=== PATIENT | female | born 2000 | race Caucasian/White ===

== ENCOUNTER 2022-03-04 12:53 | Outpatient (CLI) | payer BC, SELFPAY ==
--- NOTE | 2022-03-04 13:00 | CRLHL7_ITS ---
For Patients: As a result of the Century Cures Act, medical imaging exams and procedure reports are released immediately into your electronic medical record. You may view this report before your referring provider. If you have questions, please contact your health care provider. OBSTETRICAL ULTRASOUND ??? ANATOMY SURVEY, 03/04/2022 CLINICAL HISTORY: anatomy survey. 2, para 1. ZOIE by LMP: 07/19/2022 GESTATIONAL AGE: 20 weeks 3 days TECHNIQUE: Transabdominal FINDINGS: position: Vertex Cervix: Visualized Length of closed cervix: 4.5 cm Placenta position: Anterior Placenta tip to internal os: +5 cm Umbilical cord: 3-vessel cord Placental insertion: Central Amniotic fluid: 4.1 cm SDP (greater than or equal to 2 to less than 8 cm) ANATOMY SURVEY: Observed Structures Cerebellum: 2.0 cm, 20 weeks 2 days Cisterna magna: 4.1 mm Nuchal fold: 3.0 mm Lateral ventricle: 5.9 mm CSP Midline falx Choroid plexus Spine Stomach Abdominal cord insert Urinary bladder Kidneys Diaphragm Nose/lips Orbital view Profile Upper extremities Lower extremities Hands Feet 4-chamber heart LVOT RVOT 3VV BPD: 4.5 cm, 19 weeks 5 days, 20% HC: 17.2 cm, 19 weeks 5 days, 15% AC: 15.4 cm, 20 weeks 4 days, 50% FL: 3.2 cm, 19 weeks 6 days, 22% FL/AC: 20.5% HC/AC ratio: 1.11 heart rate: 150 bpm age by this ultrasound: 20 weeks 0 days ZOIE by this ultrasound: 07/22/2022 Estimated weight: 337 grams (0 pounds 12 ounces) Percentile by ZOIE: 32% IMPRESSION: Single live intrauterine gestation. No gross anomalies visualized. MADELINE BHARDWAJ M.D. Diagnostic/Breast Radiologist [email or web address] Transcribed: 4:[address]/Dictated by: Madeline Bhardwaj MD @ 03/04/2022 2:43:00 PM (Electronically Signed)
== END 2022-03-04 12:54 | disposition home or self-care (01) ==
LOC: US 12:55
PROVIDERS: Visit Provider Physician Assistant
DX: Z34.92 Encounter for supervision of normal pregnancy, unspecified, second trimester (principal); Z3A.20 20 weeks gestation of pregnancy
CPT/HCPCS: 76805

== ENCOUNTER 2022-05-02 14:23 | Outpatient (CLI) | payer BC, SELFPAY ==
[2022-05-03 18:37] LABS: Rapid Plasma Reagin (RPR) Non Reactive (Non Reactive)
== END 2022-05-02 14:24 | disposition home or self-care (01) ==
PROVIDERS: Visit Provider Physician Assistant
DX: Z34.93 Encounter for supervision of normal pregnancy, unspecified, third trimester (principal); Z3A.28 28 weeks gestation of pregnancy
CPT/HCPCS: 86592; 86850

== ENCOUNTER 2022-05-09 12:04 | Outpatient (CLI) | payer BC, SELFPAY ==
[2022-05-09 11:57] LABS: Glucose Fasting Check 86 mg/dl (60-115)
[2022-05-09 17:08] LABS: Glucose 1 Hour Gest 164 mg/dl (70-180)
[2022-05-09 17:08] LABS: Glucose GTT-Gestational 3 Hr 120 mg/dl (70-140)
== END 2022-05-09 12:05 | disposition home or self-care (01) ==
PROVIDERS: Visit Provider Obstetrics & Gynecology
DX: Z34.93 Encounter for supervision of normal pregnancy, unspecified, third trimester (principal); Z3A.29 29 weeks gestation of pregnancy
CPT/HCPCS: 82951; 82952

== ENCOUNTER 2022-06-24 16:25 | Outpatient (CLI) | payer BC, SELFPAY ==
[2022-06-26 17:45] LABS: Strep B DNA Probe NEGATIVE (Negative)
[2022-06-28 10:24] LABS: Strep B Pen/Amox Allergy No
== END 2022-06-24 16:26 | disposition home or self-care (01) ==
LOC: NFLDREF 16:27
PROVIDERS: Visit Provider Obstetrics & Gynecology
DX: Z34.93 Encounter for supervision of normal pregnancy, unspecified, third trimester (principal); Z3A.36 36 weeks gestation of pregnancy
CPT/HCPCS: 87081; 87653

== ENCOUNTER 2022-06-27 17:42 | Outpatient (CLI) | payer BC, SELFPAY ==
[2022-06-27 17:59] VITALS: PULSE 157; O2SAT 98
[2022-06-27 18:00] VITALS: BP 93/48; PULSE 155
[2022-06-27 18:02] VITALS: BP 98/50; PULSE 148
[2022-06-27 18:04] VITALS: PULSE 149; O2SAT 98
[2022-06-27 18:09] VITALS: TEMP 37.1
[2022-06-27 19:42] LABS: Appearance Urine Cloudy (Clear); Bilirubin Urine 1+ (Negative); Blood Urine Negative (Negative); Color Urine Dark yellow (Yellow); Glucose Urine Negative (Negative); Ketones Urine 4+ (Negative); Leukocyte Esterase Urine 1+ (Negative); Nitrite Urine Negative (Negative); Protein Urine Trace (Negative); Specific Gravity Urine 1.025 (1.000-1.030); Urobilinogen Urine 0.2 (0.2-1.0); pH Urine 6.5 (5.0-8.5)
[2022-06-27 20:49] LABS: Amorphous Sediment Urine Few; Bacteria Urine Few; RBC Urine 0-2 (0-2); Squamous Epithelial Cell Urine Many (None-Few)
[2022-06-27 20:50] LABS: Mucus Urine Few
[2022-06-27] MEDS: LACTATED RINGERS 1000 ML 1,000 ML 900 ML IV (21:24)
--- NOTE | 2022-06-27 21:36 | PC.OBNST ---
NST Note NST Note Start: 06/27/22 17:48 Freq: ONCE Status: Active Protocol: Document 06/27/22 21:33 SIMA (Rec: 06/27/22 21:35 SIMA [id number]) NST Note 2 Para (# of births) 1 EDC 07/19/22 Gestational Age In Weeks & Days 36 Weeks & 6 Days Patient Presented with Complaint(s) of Pain If Pain, describe location low back pain my tailbone' Reactive Yes Appropriate for Gestational Age Yes MUKUND Zee, RN Date 06/27/22 Reactive Yes Appropriate for Gestational Age Yes MUKUND Baires RN Date 06/27/22 OB NST charge Yes Complete NST Note via Write Note Yes The provider's electronic signature indicates the NST is reactive/appropriate for gestational age. *Note to provider: If an addendum is required, open the patient's chart and click on the note under the Nurse/Allied Health tab.
== END 2022-06-27 22:41 | disposition home or self-care (01) ==
LOC: OB OUT 17:43 → OB 17:45
PROVIDERS: Visit Provider Obstetrics & Gynecology
DX: O47.03 False labor before 37 completed weeks of gestation, third trimester (principal); Z3A.36 36 weeks gestation of pregnancy
CPT/HCPCS: 59025; 81003; 81015; 87086; 99213; J7120

== ENCOUNTER 2022-07-19 13:58 | Outpatient (CLI) | payer BC, SELFPAY ==
--- NOTE | 2022-07-19 14:00 | CRLHL7_ITS ---
For Patients: As a result of the Cures Act, medical imaging exams and procedure reports are released immediately into your electronic medical record. You may view this report before your referring provider. If you have questions, please contact your health care provider. INDICATION: Growth and fluid check. COMPARISON: OB ultrasound 03/04/2022. TECHNIQUE: Ultrasound OB pelvis with real time zarate scale imaging. FINDINGS: Sonographic imaging demonstrates a single living intrauterine gestation. The fetus has a regular cardiac rate of 134 beats per minute. The fetus has a cephalic orientation. The placenta lies anteriorly without evidence of placenta previa. Amniotic fluid volume appears normal with single deepest pocket measuring 6.7 cm. The composite ultrasound gestational age is calculated at 37 weeks 5 days with an estimated sonographic due date of 08/04/2022. The estimated weight is 3737 grams which lies at the 60th percentile. The following biometric measurements were obtained: Biparietal diameter: 8.73 cm (35 weeks 2 days) (less than 3rd percentile) Head circumference: 32.32 cm (36 weeks 4 days) (less than 3rd percentile) Abdominal circumference: 37.72 cm (41 weeks 5 days) (greater than 97th percentile) Femur length: 7.25 cm (37 weeks 1 day) (5th percentile) The HC/AC ratio measures: 0.86 (range 0.90-1.05) IMPRESSION: 1. Single living intrauterine gestation in cephalic position with heart rate 134 beats per minute. 2. Ultrasound gestational age 37 weeks 5 days with sonographic due date 08/04/2022. The clinical gestational age is 40 weeks 0 days. 3. Estimated weight is 60th percentile, however the biparietal diameter and head circumference are noted to be less than 3rd percentile and the abdominal circumference is noted to be greater than 97th percentile. Dictated by Arianna Monteiro MD @ 07/19/2022 11:01:36 PM (Electronically Signed)
== END 2022-07-19 13:59 | disposition home or self-care (01) ==
LOC: US 13:59
PROVIDERS: Visit Provider Obstetrics & Gynecology
DX: Z34.93 Encounter for supervision of normal pregnancy, unspecified, third trimester (principal); Z3A.37 37 weeks gestation of pregnancy
CPT/HCPCS: 76816

== ENCOUNTER 2022-07-25 16:49 | Inpatient (IN) | payer BC, SELFPAY ==
--- NOTE | 2022-07-25 15:00 | CRLHL7_ITS ---
For Patients: As a result of the Century Cures Act, medical imaging exams and procedure reports are released immediately into your electronic medical record. You may view this report before your referring provider. If you have questions, please contact your health care provider. INDICATION: Nonreactive stress test COMPARISON: 07/19/2022 TECHNIQUE: Real time zarate scale imaging of the fetus was performed. Without non-stress testing. FINDINGS: Sonographic imaging demonstrates a single living intrauterine gestation. Fetus demonstrates a regular cardiac rate of 131 beats per minute. Fetus has a vertex position. The amniotic fluid volume appears normal and there is a single deepest pocket measurement of 4.5 cm. The fetus was active but without normal breathing movements. There was normal flexion and extension of the trunk and extremities. IMPRESSION: Biophysical profile 01/12. Absent respiratory activity. Dictated by Cameron Ramos MD @ 07/26/2022 8:34:53 AM (Electronically Signed)
[2022-07-25 16:59] VITALS: PULSE 114; RESP 18; TEMP 36.6; O2SAT 97
[2022-07-25 17:04] VITALS: PULSE 85; O2SAT 97
[2022-07-25 17:10] VITALS: BP 114/71; PULSE 93
[2022-07-25 17:13] VITALS: BMI 45.3
--- NOTE | 2022-07-25 18:04 | PM.OBHPLI ---
OB - H&P: HPI Labor/Induction History of Present Illness Time Seen by Provider: 17:00 Date Seen: 07/25/22 Chief Complaint: Induction of labor Chief complaint: Post term Narrative: Katiuska Cormier is a 22 year old female here for induction of labor. Patient getting BPP for postterm date and BPP 01/12. Patient had NST in clinic and it was nonreactive. Recommended IOL. Patient agreed to IOL. History of Present Dating criteria: based on 1st trimester US only Meds Home Medications and Allergies Home Medications Medication Instructions Recorded Confirmed Type calcium carbonate 200 mg calcium 200 mg PO BID 03/04/22 07/25/22 History (500 mg) chewable tablet (Antacid (calcium carbonate)) prenat.vits,onel,[id number]-azsr-uitsw 1 tab PO QDAY 03/04/22 07/25/22 History Allergies Allergy/AdvReac Type Severity Reaction Status Date / Time ibuprofen Allergy Mild Unsure Verified 07/25/22 13:54 OB - H&P: Exam Physical Exam: Vital signs: Temp Pulse Resp BP Pulse Ox 97.9 F 93 18 114/71 97 07/25/22 16:59 07/25/22 17:10 07/25/22 16:59 07/25/22 17:10 07/25/22 17:04 Narrative: Physical exam: General: No acute distress Psych: Alert and oriented x3, full affect HEENT: Normocephalic, atraumatic Lungs: Unlabored breathing Abdomen: Gravid, soft, no tenderness, rebound, or guarding Pelvic exam: /-3 OB - Problem Based A/P Additional Plan (1) : Status: Acute Plan - Cook cath placed at 1730 with SVE /-3, posterior - Will start pitocin PRN
[2022-07-25 18:54] LABS: SARS PCR* Negative SARS-CoV-2 (Negative)
[2022-07-25 19:45] VITALS: TEMP 36.6
[2022-07-25 19:48] VITALS: BP 116/66; PULSE 90
[2022-07-26] VITALS (95 sets, daily range): BP systolic 78–156; BP diastolic 39–81; PULSE 66–134; RESP 16–18; TEMP 36.4–37.7; O2SAT 97–100
[2022-07-26 00:02] LABS: Basophils Absolute Auto 0.03 K/uL (0.00-0.30); Basophils Percent Auto 0.3 % (0.0-3.0); Eosinophils Absolute Auto 0.05 K/uL (0.00-0.50); Eosinophils Percent Auto 0.5 % (0.0-7.0); Hematocrit 38.1 % (33.0-51.0); Hemoglobin* 12.6 gm/dL (12.0-16.0); Immature Granulocytes Abs Auto 0.02 K/uL (0.00-0.30); Immature Granulocytes Pct Auto 0.2 %; Lymphocytes Absolute Auto 2.75 K/uL (0.90-2.90); Lymphocytes Percent Auto 29.2 % (20-44); Mean Corpuscular HGB Conc 33 gm/dL (32-36); Mean Corpuscular Hemoglobin 30 pg (26-34); Mean Corpuscular Volume 91 fL (80-100); Monocytes Percent Auto 6.1 % (0.0-11.0); Neutrophils Absolute Auto 5.99 K/uL (1.7-7.0); Neutrophils Percent Auto 63.7 % (42.0-72.0); Platelet Count* 215 K/uL (140-440); RDW Coefficient of Variation % 14.5 % (11.5-15.5); Red Blood Count 4.21 m/uL (4.00-5.20); White Blood Count* 9.41 K/uL (4.50-11.00)
[2022-07-26 00:05] LABS: Slide Review Reflex No
[2022-07-26] MEDS: LACTATED RINGERS 1000 ML 1,000 ML 125 ML IV ×3 (00:12→16:25)
[2022-07-26] MEDS: OXYTOCIN 30 unit/500 ML in NS 30 UNIT/500 ML BAG IVPB (00:14)
[2022-07-26] MEDS: hydrOXYzine pamoate 25 MG CAPSULE 100 MG PO (00:34)
[2022-07-26] MEDS: MORPHINE 10 MG/ML inj IM (00:35)
[2022-07-26] MEDS: LACTATED RINGERS 1000 ML 1,000 ML 119 ML IV (07:58)
--- NOTE | 2022-07-26 12:54 | PM.OBPNL ---
Subjective Date Seen: 07/26/22 Narrative: Katiuska woke up a short time ago. She is feeling some of her contractions. She is on Pitocin augmentation, currently at 8 milliunits a minute. Objective Exam: General: Wincing through contractions Abdomen: Soft, nontender, gravid, 8.5 lb by Steve's, cephalic lie Cervical exam: 3.5 cm, 70%,-2, posterior, soft AROM for clear fluid Vital Signs: Last Vital Signs Temp 97.5 F L 07/26/22 12:32 Pulse 84 07/26/22 12:34 Resp 18 07/26/22 12:32 BP 122/69 07/26/22 12:34 Pulse Ox 97 07/25/22 17:04 Pelvic Exam Dilation (cm): 3.5 Effacement (%): 70 Station: -2 Comments: Posterior, soft Contractions Monitor mode: External Contraction Frequency: Every 1-2 minutes Contraction pattern: Regular Pitocin Rate (mU/min): 8 Assessment Assessment: early labor Status: Category l Labor Progress: 22-year-old [id number] woman at 41 weeks gestation here for induction of labor. Cervix now favorable. Progressing through latent labor. GBS negative Plan Plan: Continue Pitocin augmentation. Epidural as desired. Anticipate spontaneous vaginal delivery.
[2022-07-26] MEDS: ROPIVACAINE 0.2% 100 ml 100 ML 12 MG EPIDURAL (13:41)
--- NOTE | 2022-07-26 13:49 | PM.ANBPRC ---
[facility] Medical History (Updated 07/11/22 @ 14:15 by Susana Noriega MD) Closed head injury Dysmenorrhea GERD (gastroesophageal reflux disease) Illicit drug use Migraine with aura Normal spontaneous vaginal delivery Surgical History (Updated 07/11/22 @ 14:15 by Susana Noriega MD) No pertinent past surgical history Family History (Updated 07/11/22 @ 14:15 by Susana Noriega MD) Other Breast cancer Diabetes Heart disease Substance abuse Social History (Updated 07/11/22 @ 14:16 by Susana Noriega MD) Narrative: Lives in [place] with daughter, not yet 2 yrs old. FOB involved. Unemployed. Tobacco use. No ETOH or drug use during . Smoking Status: Current some day smoker Meds Home Medications and Allergies Home Medications Medication Instructions Recorded Confirmed Type calcium carbonate 200 mg calcium 200 mg PO BID 03/04/22 07/25/22 History (500 mg) chewable tablet (Antacid (calcium carbonate)) prenat.vits,onel,iph-gayz-[id number] 1 tab PO QDAY 03/04/22 07/25/22 History Allergies Allergy/AdvReac Type Severity Reaction Status Date / Time ibuprofen Allergy Mild Unsure Verified 07/25/22 13:54 Results Labs Labs: Laboratory Results - last 24 hr 07/25/22 07/25/22 07/25/22 18:05 23:55 23:55 WBC 9.41 RBC 4.21 Hgb 12.6 Hct 38.1 MCV 91 MCH 30 MCHC 33 RDW Coeff of Cynthia 14.5 Plt Count 215 Neut % (Auto) 63.7 Lymph % (Auto) 29.2 [place] % (Auto) 6.1 Eos % (Auto) 0.5 Baso % (Auto) 0.3 Neut # (Auto) 5.99 Lymph # (Auto) 2.75 [place] # (Auto) 0.60 Eos # (Auto) 0.05 Baso # (Auto) 0.03 SARS-CoV-2 (PCR) Negative SARS-CoV-2 Blood Type O Negative Antibody Screen NEGATIVE Vital Signs Vital Signs: Last Vital Signs Temp 97.5 F L 07/26/22 12:32 Pulse 91 07/26/22 13:43 Resp 18 07/26/22 12:32 BP 122/58 L 07/26/22 13:43 Pulse Ox 100 07/26/22 13:44 Weight: 108.862 kg Height: 154.94 cm Anesthesia Procedures Epidural Insertion Patient Location: OB Start Time: 13:10 Stop Time: 14:10 Start Date: 07/26/22 Stop Date: 07/26/22 Reason for Block: procedure for pain Patient Position: sitting Performed By: Anuradha Garcia Preanesthetic Checklist: IV checked, risks and benefits discussed, monitors and equipment checked, pre-op evaluation, timeout performed and anesthesia consent Prep: chlorhexidine gluconate Monitoring: blood pressure monitoring, continuous pulse oximetry and heart rate Approach: midline Vertebral Space: lumbar (1-5) Epidural Technique: PANKAJ saline Needle Type: Tuohy needle Injection Technique: continuous catheter (continuous catheter) Needle gauge: 17 Needle Length (cm): 10 cm Needle Insertion Depth (cm): 9 Catheter Gauge: 19 Catheter Type: multi-orifice Catheter at skin depth (cm): 15 Test Dose Result: negative and lidocaine 1.5% with epinephrine 1 to 200,000
[2022-07-26] MEDS: PHENYLEPHRINE 100 MCG/ML SYRINGE IVP ×4 (14:04→16:57)
[2022-07-26] MEDS: ePHEDrine sulfate 5 MG/ML inj 10 MG IVP (14:12)
--- NOTE | 2022-07-26 16:15 | PM.OBPNL ---
Subjective Time Seen by Provider: 15:50 Date Seen: 07/26/22 Narrative: Katiuska has had epidural. I was called to evaluate her for deceration, which happened spontaneously. She is not feeling any contractions. Objective Vital Signs: Last Vital Signs Temp 97.5 F L 07/26/22 12:32 Pulse 105 H 07/26/22 16:06 Resp 18 07/26/22 12:32 BP 90/51 L 07/26/22 16:06 Pulse Ox 99 07/26/22 15:51 Comments: lying on her right side when I enter. tracing improves when she moves to her back. Pelvic Exam Dilation (cm): 6.5 Effacement (%): 90 Station: -1 Comments: per RN Contractions Monitor mode: External Contraction pattern: Regular Pitocin Rate (mU/min): 0 Assessment Assessment: early labor Status: Category ll Tracing Comments: Baseline initially 140 prior to 1550, category 1. Then tracing was lost. Upon obtaining tracing again, FHR in 90s for about 2 minutes, then recovered to 110s for several minutes. Patient was given another dose of phenylephrine for low BP. FHR now 150s, variables with contractions for the last 15 minutes. Labor Progress: 22-year-old B2Q7-8-3-3 woman at 41 weeks gestation here for induction of labor. Active labor. GBS negative Plan Plan: Hold pitocin until status returns to baseline. Anticipate rapid progress through active labor. Continuous monitoring. Anticipate spontaneous vaginal delivery.
--- NOTE | 2022-07-26 20:47 | P.OBPRC_ITS ---
Procedure Procedure Done: [facility] Procedure Details: The patient is a 22 year-old G 2 P 1-0-0-1 woman admitted on 07/25/2022 at 40 Weeks, 6 Days gestation for induction of labor for nonreassuring status, BPP 6/10.? Cervical exam on admission was 1 cm/50 % effaced/-3 station with membranes intact in vertex presentation.? C heart rate demonstrated a nonreactive tracing.? She had Cook catheter for cervical ripening overnight, followed by Pitocin for induction of labor. AROM occurred at 10:40 a.m. on 07/26/2022 with clear fluid. ? Labor Analgesia:? Epidural ? Pitocin:? Yes ? Labor onset:? 12:15 p.m. on 07/26/2022 ? Complete:? 7:48 p.m. ? Pushing:? 7:59 p.m. ? heart tones during second stage were notable for intermittent variable decelerations, and an elevated baseline around 160. ? At 8:06 p.m. a viable female infant delivered in vertex direct OA presentation over intact perineum via spontaneous vaginal delivery.? was placed on maternal abdomen.? Cord was clamped and cut after a 60 second delay.? Nose and mouth were bulb suctioned.? weight pending.? 8 at 1 minute and 9 at 5 minutes.? Shoulder dystocia: No.? Nuchal cord: No. ? Placenta delivered spontaneously and complete at 8:11 p.m. with a 3 vessel cord. ? Mother and were stable after delivery. ? Lacerations:? Bilateral superficial periurethral, very shallow and not requiring repair. ? Blood loss: 100 mL. Blood loss measurement type: QBL ? Sponge and needles counts are correct.
[2022-07-26] MEDS: ACETAMINOPHEN 500 MG TABLET 1000 MG PO (23:03)
[2022-07-27 00:59] VITALS: BP 106/66; PULSE 91; RESP 16; TEMP 37.1; O2SAT 96
[2022-07-27 04:16] VITALS: BP 110/71; PULSE 80; RESP 16; TEMP 37; O2SAT 96
[2022-07-27] MEDS: ROPIVACAINE 0.2 % PF 10 ML INJ 20 MG EPIDURAL (05:47)
--- NOTE | 2022-07-27 07:48 | PM.OBDSVD1 ---
DS: Providers Provider Time Seen by Provider: 07:48 Date Seen: 07/27/22 Date of admission: 07/25/22 16:49 Primary care physician: Not a Local Provider Admitting Clinician: Salina Grey MD Attending Physician on discharge: Shreya Goldstein CNM Date of Discharge: 07/27/22 DS: Diagnosis Discharge Diagnosis (1) state: Status: Acute Exam Narrative: Exam Narrative: Objective: VSS, afebrile GENERAL APPEARANCE: ?normal affect, alert, no distress MOOD: ?appropriate HEENT: normocephalic, neck supple, full ROM CHEST: ?Symmetrical chest wall movement. ?Normal respiratory effort. ?Clear to auscultation HEART: ?regular rate and rhythm ABDOMEN: ?soft, non-tender. Uterine fundus is firm, 2 under Umbilicus, Midline and is appropriate for the stage of recovery. ?Bowel sounds present. PERINEUM: ?mild edema of the perineum, there is are bilateral superficial periurethral lacerations that are healing well. EXTREMITIES: ?normal and +1 edema Const: Vital Signs, click to edit/add: Vital Signs - 24 hr 07/26/22 08:47 07/26/22 09:41 07/26/22 10:35 Temperature Pulse Rate 69 80 81 Pulse Rate [Blood Pressure Cuff] Respiratory Rate Blood Pressure 121/56 L 118/55 L 107/65 Blood Pressure [Le ft Arm] Pulse Oximetry Oxygen Delivery Me od 07/26/22 11:30 07/26/22 12:27 07/26/22 12:34 Temperature Pulse Rate 86 91 84 Pulse Rate [Blood Pressure Cuff] Respiratory Rate Blood Pressure 127/62 156/81 H 122/69 Blood Pressure [Le ft Arm] [facility] 13:18 07/26/22 13:23 07/26/22 13:28 Temperature Pulse Rate Pulse Rate [Blood Pressure Cuff] Respiratory Rate Blood Pressure Blood Pressure [Le ft Arm] Pulse Oximetry 99 99 99 Oxygen Delivery Al thod 07/26/22 13:34 07/26/22 13:35 07/26/22 13:39 Temperature Pulse Rate 106 H Pulse Rate [Blood Pressure Cuff] Respiratory Rate Blood Pressure 143/81 H Blood Pressure [Le ft Arm] Pulse Oximetry 100 100 [facility] 13:40 07/26/22 13:43 07/26/22 13:44 Temperature Pulse Rate 99 91 Pulse Rate [Blood Pressure Cuff] Respiratory Rate Blood Pressure 127/58 L 122/58 L Blood Pressure [Le ft Arm] Pulse Oximetry 100 Oxygen Delivery Me thod 07/26/22 13:49 07/26/22 13:59 07/26/22 14:04 Temperature Pulse Rate 100 96 103 H Pulse Rate [Blood Pressure Cuff] Respiratory Rate Blood Pressure 112/56 L 95/45 L 89/50 L Blood Pressure [Le ft Arm] Pulse Oximetry 97 Oxygen Delivery Me thod 07/26/22 14:06 07/26/22 14:09 07/26/22 14:14 Temperature Pulse Rate 100 106 H 110 H Pulse Rate [Blood Pressure Cuff] Respiratory Rate Blood Pressure 94/50 L 88/42 L 103/54 L Blood Pressure [Le ft Arm] Pulse Oximetry Oxygen Delivery Me thod 07/26/22 14:19 07/26/22 14:24 07/26/22 14:30 Temperature Pulse Rate 115 H 134 H 102 H Pulse Rate [Blood Pressure Cuff] Respiratory Rate Blood Pressure 95/46 L 96/54 L 106/53 L Blood Pressure [Le ft Arm] Pulse Oximetry Oxygen Delivery Al thod 07/26/22 14:34 07/26/22 14:50 07/26/22 15:06 Temperature Pulse Rate 110 H 98 121 H Pulse Rate [Blood Pressure Cuff] Respiratory Rate Blood Pressure 104/52 L 104/51 L 99/51 L Blood Pressure [Le ft Arm] Pulse Oximetry Oxygen Delivery Me thod 07/26/22 15:17 07/26/22 15:21 07/26/22 15:35 Temperature Pulse Rate 112 H 96 90 Pulse Rate [Blood Pressure Cuff] Respiratory Rate Blood Pressure 103/56 L 109/55 L 104/55 L Blood Pressure [Le ft Arm] Pulse Oximetry Oxygen Delivery Me thod 07/26/22 15:50 07/26/22 15:51 07/26/22 16:05 Temperature Pulse Rate 86 120 H Pulse Rate [Blood Pressure Cuff] Respiratory Rate Blood Pressure 98/54 L 78/39 L Blood Pressure [Le ft Arm] Pulse Oximetry 99 Oxygen Delivery Me thod 07/26/22 16:06 07/26/22 16:06 07/26/22 16:06 Temperature Pulse Rate 100 105 H Pulse Rate [Blood Pressure Cuff] Respiratory Rate Blood Pressure 88/49 L 90/51 L Blood Pressure [Le ft Arm] Pulse Oximetry Oxygen Delivery Al thod 07/26/22 16:16 07/26/22 16:20 07/26/22 16:26 Temperature Pulse Rate 95 107 H 93 Pulse Rate [Blood Pressure Cuff] Respiratory Rate Blood Pressure 102/52 L 86/48 L 109/58 L Blood Pressure [Le ft Arm] Pulse Oximetry Oxygen Delivery Al thod 07/26/22 16:32 07/26/22 16:36 07/26/22 16:42 Temperature Pulse Rate 99 96 108 H Pulse Rate [Blood Pressure Cuff] Respiratory Rate Blood Pressure 101/50 L 96/50 L 91/47 L Blood Pressure [Le ft Arm] Pulse [facility]xim[facility] 16:47 07/26/22 16:50 07/26/22 16:55 Temperature Pulse Rate 100 112 H 112 H Pulse Rate [Blood Pressure Cuff] Respiratory Rate Blood Pressure 101/52 L 90/46 L 81/42 L Blood Pressure [Le ft Arm] Pulse Oximetry [facility] 17:00 07/26/22 17:02 07/26/22 17:06 Temperature Pulse Rate 101 H 97 106 H Pulse Rate [Blood Pressure Cuff] Respiratory Rate Blood Pressure 120/61 108/59 L 109/55 L Blood Pressure [Le ft Arm] Pulse Oximetry [facility] 07[facility] 17:07 07/26/22 17:10 07/26/22 17:16 Temperature Pulse Rate 104 H 114 H 100 Pulse Rate [Blood Pressure Cuff] Respiratory Rate Blood Pressure 101/53 L 95/49 L 116/59 L Blood Pressure [Le ft Arm] Pulse Oximetry Oxygen Delivery Al thod 07/26/22 17:20 07/26/22 17:26 07/26/22 17:31 Temperature Pulse Rate 98 95 96 Pulse Rate [Blood Pressure Cuff] Respiratory Rate Blood Pressure 108/53 L 116/53 L 119/57 L Blood Pressure [Le ft Arm] Pulse Oximetry Oxygen Delivery Al thod 07/26/22 17:36 07/26/22 17:40 07/26/22 17:45 Temperature Pulse Rate 97 111 H 113 H Pulse Rate [Blood Pressure Cuff] Respiratory Rate Blood Pressure 112/53 L 112/53 L 108/46 L Blood Pressure [Le ft Arm] Pulse Oximetry Oxygen Delivery Al thod 07/26/22 17:51 07/26/22 17:55 07/26/22 18:00 Temperature Pulse Rate 107 H 108 H 102 H Pulse Rate [Blood Pressure Cuff] Respiratory Rate Blood Pressure 105/50 L 99/48 L 99/50 L Blood Pressure [Le ft Arm] Pulse Oximetry Oxygen Delivery Al thod 07/26/22 18:05 07/26/22 18:10 07/26/22 18:16 Temperature Pulse Rate 101 H 104 H 102 H Pulse Rate [Blood Pressure Cuff] Respiratory Rate Blood Pressure 102/54 L 103/54 L 108/53 L Blood Pressure [Le ft Arm] Pulse Oximetry Oxygen Delivery Al thod 07/26/22 18:21 07/26/22 18:27 07/26/22 18:32 Temperature Pulse Rate 116 H 100 101 H Pulse Rate [Blood Pressure Cuff] Respiratory Rate Blood Pressure 103/50 L 115/54 L 112/56 L Blood Pressure [Le ft Arm] Pulse Oximetry [facility] 18:35 07/26/22 18:40 07/26/22 19:03 Temperature Pulse Rate 112 H 121 H 129 H Pulse Rate [Blood Pressure Cuff] Respiratory Rate Blood Pressure 107/51 L 103/50 L 103/48 L Blood Pressure [Le ft Arm] Pulse Oximetry [facility] 19:16 07/26/22 19:26 07/26/22 19:30 Temperature 99.8 F H Pulse Rate 123 H 115 H Pulse Rate [Blood Pressure Cuff] Respiratory Rate 16 Blood Pressure 104/51 L 107/53 L Blood Pressure [Le ft Arm] Pulse Oximetry [facility]22 19:46 07/26/22 20:01 07/26/22 20:13 Temperature Pulse Rate 129 H 120 H 113 H Pulse Rate [Blood Pressure Cuff] Respiratory Rate Blood Pressure 130/60 125/63 129/60 Blood Pressure [Le ft Arm] Pulse Oximetry Oxygen Delivery Al thod 07/26/22 20:27 07/26/22 20:43 07/26/22 20:57 Temperature Pulse Rate 121 H 129 H 112 H Pulse Rate [Blood Pressure Cuff] Respiratory Rate Blood Pressure 129/60 128/74 131/61 Blood Pressure [Le ft Arm] Pulse Oximetry Oxygen Delivery Me thod 07/26/22 21:12 07/26/22 21:27 07/26/22 21:42 Temperature Pulse Rate 110 H 118 H 111 H Pulse Rate [Blood Pressure Cuff] Respiratory Rate Blood Pressure 131/57 L 132/64 136/67 Blood Pressure [Le ft Arm] Pulse Oximetry Oxygen Delivery Me thod 07/26/22 21:57 07/26/22 21:57 07/26/22 08:50 Temperature 98.5 F Pulse Rate 109 H Pulse Rate [Blood Pressure Cuff] Respiratory Rate 18 Blood Pressure 125/65 Blood Pressure [Le ft Arm] Pulse Oximetry Oxygen Delivery Me thod 07/26/22 10:40 07/26/22 12:32 07/26/22 18:15 Temperature 98.3 F 97.5 F L 99.6 F Pulse Rate Pulse Rate [Blood Pressure Cuff] Respiratory Rate 16 18 18 Blood Pressure Blood Pressure [Le ft Arm] Pulse Oximetry Oxygen Delivery Me thod 07/26/22 18:55 07/26/22 11:31 07/26/22 13:42 Temperature 99.6 F 98.3 F 98 F Pulse Rate Pulse Rate [Blood Pressure Cuff] Respiratory Rate 18 18 16 Blood Pressure Blood Pressure [Le ft Arm] Pulse Oximetry Oxygen Delivery Me thod 07/26/22 15:12 07/26/22 16:05 07/26/22 16:59 Temperature 98.3 F 98.2 F 99.2 F Pulse Rate Pulse Rate [Blood Pressure Cuff] Respiratory Rate 18 18 18 Blood Pressure Blood Pressure [Le ft Arm] Pulse Oximetry Oxygen Delivery Me thod 07/26/22 20:13 07/26/22 20:27 07/26/22 20:43 Temperature 99.4 F 98.8 F Pulse Rate Pulse Rate [Blood Pressure Cuff] 113 H 121 H 129 H Respiratory Rate Blood Pressure Blood Pressure [Le ft Arm] 139/60 129/60 128/74 Pulse Oximetry Oxygen Delivery Me thod 07/26/22 20:57 07/26/22 21:12 07/26/22 21:27 Temperature Pulse Rate Pulse Rate [Blood Pressure Cuff] 112 H 110 H 118 H Respiratory Rate Blood Pressure Blood Pressure [Le ft Arm] 131/61 131/57 L 132/64 Pulse Oximetry Oxygen Delivery Me thod 07/26/22 21:42 07/26/22 21:57 07/27/22 00:59 Temperature 98.4 F 98.8 F Pulse Rate Pulse Rate [Blood Pressure Cuff] 111 H 109 H 91 Respiratory Rate 16 Blood Pressure Blood Pressure [Le ft Arm] 136/67 125/65 106/66 Pulse Oximetry 96 Oxygen Delivery Me thod Room Air 07/27/22 04:16 Temperature 98.6 F Pulse Rate Pulse Rate [Blood Pressure Cuff] 80 Respiratory Rate 16 Blood Pressure Blood Pressure [Le ft Arm] 110/71 Pulse Oximetry 96 Oxygen Delivery Me thod Room Air Documenting provider has reviewed patient's vital signs: yes OB - DS: Summary Hospital Course Hospital Course: Subjective: Katiuska is a 22 y.o. who was admitted to [facility] for IOL r/t non-reassuring heart tones and BPP 01/12. ?She had an uncomplicated NVD The patient feels well. ?The pain is well controlled with current medications. ?History of prescription drug misuses and illicit drug use, only using Tylenol for pain and reports that her pain is well controlled. Does not need other pain medications for home. She has no new complaints. ?She is formula feeding and reports things are going well.? the patient has done well.? Vitals have been stable.? She has remained afebrile.? Has a good appetite, is tolerating a general diet. ?She is voiding without difficulty.? She is passing gas and has not had a bowel movement.? She is ambulating and denies any dizziness.? Has Small amount of rubra lochia. ?She is planning oral contraceptives for prevention. Problems: none plan: Discharge home with baby. Follow up in 2 weeks and 6 weeks. Formula feeding, follow up with gate watch if needed Peripartum Data Infant delivery method: Vaginal Laceration description: Periurethral - 1st Degree (very superficial, unrepaired) complications: none Gender: Female (Aria) Discharge Plan: Home Status at Discharge Functional status at discharge: independent ambulation Overall status at discharge: patient is progressing back to baseline Time Spent with Patient Time attestation: Total time spent providing and/or coordinating discharge services: Time spent: Less than 30 minutes Discharge Plan Discharge Disposition: Home, Self-Care Date of Admission: 07/25/22 16:49 Attending Provider on Discharge: Shreya Goldstein Primary Care Provider: Provider,Not a Local Condition: Stable Anticipated Discharge Date/Time: 07/27/22 20:00 Discharge Medications: New docusate sodium 100 mg Capsule 100 mg PO DAILY Qty: 60 1RF acetaminophen 500 mg Tablet 1,000 mg PO Q6H PRNQty: 0 0RF Continued prenat.vits,onel,[id number] Tablet 1 tab PO QDAY calcium carbonate [Antacid (calcium carbonate)] 200 mg calcium (500 mg) tablet,chewable 200 mg PO BID famotidine 40 mg tablet 40 mg PO BID PRN (Reason: reflux) Qty: 100 1RF Discharge Orders: Discharge Order (Routine); Ordered 07/27/22 Ordered By: Shreya Goldstein Patient Education: OB Over the Counter Medication Information, OB Vaginal/Bottle Feeding Activity Level: Activity as Tolerated Activity Detail: 2 week and 6 week visits Discharge Diet: Regular Follow Up Appointments: Provider,Not a Local [Primary Care Provider] - Forms: [facility] Info Instructions
[2022-07-27 07:58] LABS: Hemoglobin* 11.3 gm/dL (12.0-16.0)
[2022-07-27 08:27] VITALS: BP 102/66; PULSE 76; RESP 16; TEMP 36.6; O2SAT 95
[2022-07-27] MEDS: DOCUSATE SODIUM 100 MG CAPSULE PO (08:35)
[2022-07-27] MEDS: ACETAMINOPHEN 500 MG TABLET 1000 MG PO ×2 (08:36→16:56)
[2022-07-27 12:43] VITALS: BP 121/79; PULSE 71; RESP 16; TEMP 36.4; O2SAT 98
[2022-07-27 16:40] VITALS: BP 113/76; PULSE 71; RESP 16; TEMP 36.6; O2SAT 98
[2022-07-27 20:30] VITALS: BP 135/78; PULSE 80; RESP 16; TEMP 36.6; O2SAT 99
== END 2022-07-27 21:18 | disposition home or self-care (01) | DRG 560 ==
LOC: US 16:49 → OB 16:50
PROVIDERS: Obstetrics & Gynecology; Admitting Provider Obstetrics & Gynecology; Visit Provider Obstetrics & Gynecology
DX: O48.0 Post-term pregnancy (principal); O76 Abnormality in fetal heart rate and rhythm complicating labor and delivery; Z37.0 Single live birth; Z3A.41 41 weeks gestation of pregnancy
CPT/HCPCS: 01967; 36415; 59200; 76819; 85018; 85025; 86850; 86900; 86901; 87635; A9270; J2270; J2370; J2795; J3010; J7120

== ENCOUNTER 2023-02-15 13:49 | Outpatient (CLI) | payer BC, SELFPAY | END 2023-02-15 13:50 | disposition home or self-care (01) | LOC: NFLDREF 13:50 | PROVIDERS: Visit Provider Registered Nurse | DX: Z01.419 Encounter for gynecological examination (general) (routine) without abnormal findings (principal); Z13.6 Encounter for screening for cardiovascular disorders | CPT/HCPCS: 80061 ==

== ENCOUNTER 2023-08-06 11:55 | Emergency (ER) | payer BC, SELFPAY ==
[2023-08-06 12:03] VITALS: BP 109/94; PULSE 98; RESP 22; TEMP 36.6; O2SAT 97; BMI 43.9
[2023-08-06 13:29] LABS: Basophils Percent Auto 0.2 % (0.0-3.0); Eosinophils Percent Auto 0.1 % (0.0-7.0); Hematocrit 43.4 % (33.0-51.0); Hemoglobin* 14.5 gm/dL (12.0-16.0); Immature Granulocytes Pct Auto 0.1 %; Lymphocytes Percent Auto 8.9 % (20-44); Mean Corpuscular HGB Conc 33 gm/dL (32-36); Mean Corpuscular Hemoglobin 29 pg (26-34); Mean Corpuscular Volume 88 fL (80-100); Monocytes Percent Auto 3.7 % (0.0-11.0); Platelet Count* 277 K/uL (140-440); RDW Coefficient of Variation % 12.7 % (11.5-15.5); Red Blood Count 4.93 m/uL (4.00-5.20); White Blood Count* 17.36 K/uL (4.50-11.00)
[2023-08-06 13:30] LABS: Slide Review Reflex No
[2023-08-06] MEDS: 0.9 % SODIUM CHLORIDE 1000 ml 1,000 ML IV ×2 (13:33→14:50)
[2023-08-06] MEDS: ONDANSETRON 2 MG/ML inj 4 MG IVP (13:33)
[2023-08-06 13:43] LABS: Chloride* 104 mmol/L (96-114)
[2023-08-06 13:44] LABS: Albumin* 4.6 g/dL (3.3-5.0); Potassium* 3.9 mmol/L (3.6-5.1); Sodium* 136 mmol/L (135-149)
--- NOTE | 2023-08-06 13:45 | ED_ITS ---
HPI - General Adult General Date Seen: 08/06/23 Chief complaint: Nausea/Vomiting Stated complaint: Throwing up for three days, dizzy Time Seen by Provider: 08/06/23 13:00 Source: patient Mode of arrival: ambulatory Limitations: no limitations History of Present Illness HPI narrative: Patient is a 23-year-old who presents for evaluation of 3 days of vomiting and diarrhea. She says that initially she felt dizzy and then developed vomiting followed by the diarrhea. She does not have any abdominal pain although she has developed some pain across her low back. Denies urinary symptoms. She thinks she maybe had a fever a couple of days ago based on how she felt although she did not check her temperature. No bloody stools or rashes. She has felt somewhat dizzy but has not had any fainting spells. Related Data Previous Rx's Medication Instructions Recorded acetaminophen 500 mg tablet 1,000 mg (2 x 500 mg) PO Q6H PRN 07/27/22 #0 tabs levonorgestrel-ethinyl estradiol 1 tab PO QDAY #84 tabs 02/15/23 0.1 mg-20 mcg tablet (Aviane) metronidazole 500 mg tablet 500 mg PO BID #14 tabs 02/15/23 Allergies Allergy/AdvReac Type Severity Reaction Status Date / Time ibuprofen Allergy Mild Unsure Verified 07/19/23 14:48 Review of Systems Status of ROS: Reports: 10 or more systems reviewed and unremarkable except as noted in History and below [facility] Medical History Stye ?H00.019 - Hordeolum externum unspecified eye, unspecified eyelid (ICD-10) GERD (gastroesophageal reflux disease) ?K21.9 - Gastro-esophageal reflux disease without esophagitis (ICD-10) Migraine with aura ?G43.109 - Migraine with aura, not intractable, without status migrainosus (ICD-10) Illicit drug use ?F19.90 - Other psychoactive substance use, unspecified, uncomplicated (ICD- 10) Dysmenorrhea ?N94.6 - Dysmenorrhea, unspecified (ICD-10) Closed head injury ?S09.90XA - Unspecified injury of head, initial encounter (ICD-10) Surgical History No pertinent past surgical history ?Z78.9 - Other specified health status (ICD-10) Family History Family/Other Breast cancer Grandfather Diabetes Father Substance abuse Other Heart disease Social History Narrative: Lives in [place] with daughter, not yet 2 yrs old. FOB involved. Unemployed. Tobacco use. No ETOH or drug use during . What is your current living situation?: I presently have a place to live Problems where you live: declined to answer In the past 12 months, utilities in danger of being shut off: no In past 12 months, lack of transportation kept you from medical appts, meetings, work, or getting things needed for daily living: no In the past 12 mos, have been you worried that your food would run out before you had money to buy more?: never true In the past 12 mos, the food you bought just didn't last and you didn't have money to buy more?: never true Smoking Status: Current every day smoker What tobacco products do you use: cigarettes How often do you have a drink containing alcohol: 2-4 times a month How many standard drinks containing alcohol do you have on a typical day: 3 or 4 How often do you have six or more drinks on one occasion: Never AUDIT-C Alcohol total score: 3 Non-prescribed substance use: marijuana (any form) How often does anyone, including family, friends and others, physically hurt you : never How often does anyone, including family, friends and others, insult or talk down to you: rarely How often does anyone, including family, friends and others, threaten you with harm: never How often does anyone, including family, friends and others, scream or curse at you: sometimes Little interest or pleasure in doing things: several days Feeling down, depressed, or hopeless: several days Exam Narrative: Exam Narrative: Vital signs as noted above. In general, an alert, well-appearing patient. Head: Normocephalic, atraumatic. Eyes: Pupils are equal reactive. Extraocular movements are full. Conjunctivae are normal. ENT: Mucous membranes are moist. Throat is normal. Neck: Supple without lymphadenopathy. Heart: Regular rate and rhythm. No murmur or rub. Lungs: Clear bilaterally. No increased work of breathing, crackles or wheezes. Abdomen: Soft and nontender. No organomegaly. No CVA tenderness. Extremities: Well perfused. No edema. No calf tenderness. Pulses intact. Neurologic: Patient is alert and oriented to person and place. Speech is fluent. Face is symmetric. Moves all extremities equally. Affect: Normal. Skin: Warm and dry. Well perfused. Const: Vital Signs, click to edit/add: Vital Signs - 24 hr 08/06/23 12:03 Temperature 97.8 F Pulse Rate [Pulse Oximeter] 98 Respiratory Rate 22 Blood Pressure [Ri ght Upper Arm] 109/94 H Pulse Oximetry 97 Oxygen Delivery Me thod Room Air Documenting provider has reviewed patient's vital signs: yes Course Course ED Course: Symptoms overall sound viral with onset of vomiting and diarrhea and absence of significant abdominal pain. Will check a urine to rule out urinary tract infection given the back pain, as well as other basic labs. Zofran, normal saline for hydration. Low suspicion for acute of abdominal process such as appendicitis, cholecystitis, pancreatitis etcetera given absence of abdominal pain. Patient had a L of saline and feels considerably better although she says that she is still little dizzy and we decided to do a 2 L. Labs are notable [place] [id number] of undetermined significance. Abdominal exam remains benign. Electrolytes are normal, LFTs are normal, CRP is 3.9. Lipase was 30. Urinalysis was negative but test was positive, potentially contributing to her elevated white blood cell count. Overall, my suspicion of acute intra-abdominal process remains low and certainly with her I would recommend against imaging at this time. We did do a bedside transabdominal ultrasound, I am able to see a yolk sac and I believe a tiny embryo in the uterus, cannot comment on cardiac activity, but it does appear that the is intrauterine. The is a surprise for her, she has a 3-year-old and a 1-year-old are ready at home. Recommend that she follow up with longitudinal float operator for either care or further discussion of options if she so desires. In the meantime, clear liquids, Zofran if needed, return for high fevers, abdominal pain, or other worsening. Vital Signs Vital signs: Initial Vital Signs Temperature 97.8 F 08/06/23 12:03 Temperature Source Temporal Artery Scan 08/06/23 12:03 Pulse Rate 98 08/06/23 12:03 Respiratory Rate 22 08/06/23 12:03 Blood Pressure 109/94 H 08/06/23 12:03 Blood Pressure Mean 99 08/06/23 12:03 Pulse Oximetry 97 08/06/23 12:03 Oxygen Delivery Method Room Air 08/06/23 12:03 Vital Signs Temperature 97.8 F 08/06/23 12:03 Pulse Rate 98 08/06/23 12:03 Respiratory Rate 22 08/06/23 12:03 Blood Pressure 109/94 H 08/06/23 12:03 Pulse Oximetry 97 08/06/23 12:03 Oxygen Delivery Method Room Air 08/06/23 12:03 Temperature 97.8 F 08/06/23 12:03 Pulse Rate 98 08/06/23 12:03 Respiratory Rate 22 08/06/23 12:03 Blood Pressure 109/94 H 08/06/23 12:03 Pulse Oximetry 97 08/06/23 12:03 Oxygen Delivery Method Room Air 08/06/23 12:03 Medications Administered Medications: Discontinued Medications Generic Name Dose Route Start Last Admin Trade Name Freq PRN Reason Stop Dose Admin Sodium Chloride 1,000 mls @ 1,000 mls/hr 08/06/23 13:15 08/06/23 14:30 0.9 % Sodium Chloride 1000 Ml IV 08/06/23 14:14 Infused .Q1H JULIO Infusion Sodium Chloride 1,000 mls @ 1,000 mls/hr 08/06/23 14:45 08/06/23 14:50 0.9 % Sodium Chloride 1000 Ml IV 08/06/23 15:44 1,000 mls/hr .Q1H JULIO Administration Ondansetron HCl 4 mg 08/06/23 13:03 08/06/23 13:33 Ondansetron 2 Mg/Ml Inj IVP 08/06/23 13:04 4 mg ONCE ONE Administration Medical Decision Making Lab Data Labs: Lab Results 08/06/23 08/06/23 Range/Units 13:20 14:15 WBC 17.36 H (4.50-11.00) K/uL RBC 4.93 (4.00-5.20) m/uL Hgb 14.5 (12.0-16.0) gm/dL Hct 43.4 (33.0-51.0) % MCV 88 (80-100) fL MCH 29 (26-34) pg MCHC 33 (32-36) gm/dL RDW Coeff of Cynthia 12.7 (11.5-15.5) % Plt Count 277 (140-440) K/uL Neut % (Auto) 87.0 H (42.0-72.0) % Lymph % (Auto) 8.9 L (20-44) % Arthur % (Auto) 3.7 (0.0-11.0) % Eos % (Auto) 0.1 (0.0-7.0) % Baso % (Auto) 0.2 (0.0-3.0) % Neut # (Auto) 15.10 H (1.7-7.0) K/uL Lymph # (Auto) 1.50 (0.90-2.90) K/uL Arthur # (Auto) 0.60 (0.00-0.90) K/UL Eos # (Auto) 0.00 (0.00-0.50) K/uL Baso # (Auto) 0.00 (0.00-0.30) K/uL Abs Immat Gran (auto) 0.00 (0.00-0.30) K/uL Imm/Tot Granulo (auto) 0.1 % Sodium 136 (135-149) mmol/L Potassium 3.9 (3.6-5.1) mmol/L Chloride 104 (96-114) mmol/L Carbon Dioxide 22 (20-32) mmol/L Anion Gap 10 (7-15) mEq/L BUN 10 (5-24) mg/dL Creatinine 0.6 (0.5-1.5) mg/dL Estimated Creat Clear 116.32 Estimated GFR 130 ml/min Glucose 97 (60-115) mg/dL Calcium 9.3 (8.4-10.6) mg/dL Total Bilirubin 0.6 (0.1-1.5) mg/dL Direct Bilirubin 0.2 (0.0-0.5) mg/dL AST 22 (12-35) U/L ALT 22 (4-35) U/L Alkaline Phosphatase 75 (40-150) U/L C-Reactive Protein 3.9 H (0.5-1.0) mg/dL Total Protein 8.2 (6.0-8.3) g/dL Albumin 4.6 (3.3-5.0) g/dL Lipase 30 (23-300) U/L Urine Color Yellow (Yellow) Urine Appearance Clear (Clear) Urine pH 6.0 (5.0-8.5) Ur Specific [place] >= 1.030 (1.000-1.030) Urine Protein Negative (Negative) Urine Glucose (UA) Negative (Negative) Urine Ketones Negative (Negative) Urine Blood Negative (Negative) Urine Nitrite Negative (Negative) Urine Bilirubin Negative (Negative) Urine Urobilinogen 0.2 (0.2-1.0) Ur Leukocyte Esterase Trace A (Negative) Urine RBC 0-2 (0-2) Urine WBC 0-2 (0-5) Ur Squamous Epith Cells Few (None-Few) Urine Bacteria Few A (None) Urine HCG, Qual POSITIVE H (Negative) Discharge Plan Discharge Clinical Impression: Vomiting and diarrhea Patient Disposition: Home, Self-Care Condition: Improved Instructions: Acute Nausea and Vomiting (DC), Acute Diarrhea (ED) Additional Instructions: Clear liquids, Zofran if needed for nausea or vomiting. Anticipate gradual improvement over the next day or 2, you should be seen again if not improving in that time frame. Advance diet as able. Recommend follow-up with OB Clinic for options. Prescriptions: No Action metronidazole 500 mg tablet 500 mg PO BID Qty: 14 0RF levonorgestrel-ethinyl estrad [Aviane] 0.1-20 mg-mcg tablet 1 tab PO QDAY Qty: 84 3RF acetaminophen 500 mg Tablet 1,000 mg PO Q6H PRNQty: 0 0RF Follow Up/Referrals: Provider,Not a Local [Primary Care Provider] - Stand Alone Forms: [facility] Info Instructions
[2023-08-06 13:46] LABS: Anion Gap 10 mEq/L (7-15); Carbon Dioxide* 22 mmol/L (20-32); Creatinine* 0.6 mg/dL (0.5-1.5); Est. Creatinine Clearance* 116.32; Estimated Glomerular Filt Rate 130 ml/min
[2023-08-06 13:47] LABS: Alkaline Phosphatase* 75 U/L (40-150); Aspartate Amino Transferase* 22 U/L (12-35); Bilirubin Direct* 0.2 mg/dL (0.0-0.5); Bilirubin Total* 0.6 mg/dL (0.1-1.5); Blood Urea Nitrogen* 10 mg/dL (5-24); Glucose* 97 mg/dL (60-115); Lipase* 30 U/L (23-300); Total Protein* 8.2 g/dL (6.0-8.3)
[2023-08-06 13:48] LABS: Alanine Aminotransferase* 22 U/L (4-35); Calcium* 9.3 mg/dL (8.4-10.6)
[2023-08-06 13:50] LABS: C Reactive Protein* 3.9 mg/dL (0.5-1.0)
[2023-08-06 14:22] LABS: Ur HCG Qualitative* POSITIVE (Negative)
[2023-08-06 14:26] LABS: Appearance Urine Clear (Clear); Bilirubin Urine Negative (Negative); Blood Urine Negative (Negative); Color Urine Yellow (Yellow); Glucose Urine Negative (Negative); Ketones Urine Negative (Negative); Leukocyte Esterase Urine Trace (Negative); Nitrite Urine Negative (Negative); Protein Urine Negative (Negative); Specific Gravity Urine >= 1.030 (1.000-1.030); Urobilinogen Urine 0.2 (0.2-1.0)
[2023-08-06 14:36] LABS: Bacteria Urine Few; RBC Urine 0-2 (0-2); Squamous Epithelial Cell Urine Few (None-Few); WBC Urine 0-2 (0-5)
[2023-08-06 15:00] VITALS: BP 122/74; PULSE 113; RESP 16; O2SAT 98
== END 2023-08-06 15:34 | disposition home or self-care (01) ==
PROVIDERS: Emergency Provider Emergency Medicine
DX: R11.2 Nausea with vomiting, unspecified (principal)
CPT/HCPCS: 36415; 80048; 80076; 81001; 81025; 83690; 85025; 86140; 87086; 96374; 99283; 99284; J2405; J7030

== ENCOUNTER 2023-09-11 14:00 | Outpatient (CLI) | payer BC, SELFPAY ==
--- NOTE | 2023-09-11 14:00 | CRLHL7_ITS ---
For Patients: As a result of the Cures Act, medical imaging exams and procedure reports are released immediately into your electronic medical record. You may view this report before your referring provider. If you have questions, please contact your health care provider. INDICATION: Ultrasound for dates and viability, unknown dates Technique: Transabdominal and transvaginal 1st trimester OB ultrasound. Grayscale and color spectral images. COMPARISON: None FINDINGS: Examination shows a single intrauterine gestation. MEASUREMENTS: Uterus is anteverted. Right ovary measures 3.0 x 1.5 x 1.9 cm. Left ovary measures 3.7 x 1.5 x 3.0 cm. EARLY GESTATION MEASUREMENTS: Railroad-rump length 5.2 cm, AGA of 11 weeks, 6 days. Heart Rate: 159 bpm. Estimated date of delivery 03/26/2024. 2.1 x 0.8 x 2.0 cm fluid collection along the inferior gestational sac. IMPRESSION: 1. Single viable intrauterine . 2. Measurements are consistent with dates. Dictated by Kyle Elder MD @ 09/12/2023 1:34:53 PM (Electronically Signed)
== END 2023-09-11 14:01 | disposition home or self-care (01) ==
LOC: US 14:01
PROVIDERS: Visit Provider Advanced Practice Midwife
DX: Z34.91 Encounter for supervision of normal pregnancy, unspecified, first trimester (principal); Z3A.11 11 weeks gestation of pregnancy
CPT/HCPCS: 76817; 86703; 86706; 86803; 86850; 86900; 86901; 87086; 87340; 87491; 87591

== ENCOUNTER 2023-09-11 15:00 | Outpatient (CLI) | payer BC, SELFPAY ==
[2023-09-11 22:05] LABS: Chlamydia DNA Amplified* Not Detected (No Detected); GC DNA Amplified* Not Detected (No Detected)
== END 2023-09-11 15:01 | disposition home or self-care (01) ==
PROVIDERS: PCP Advanced Practice Midwife; Visit Provider Advanced Practice Midwife
DX: Z34.81 Encounter for supervision of other normal pregnancy, first trimester (principal)
CPT/HCPCS: 86592; 86703; 86704; 86706; 86762; 86787; 86803; 86850; 86900; 86901; 87086; 87340; 87491; 87591

== ENCOUNTER 2023-10-09 15:27 | Outpatient (CLI) | payer BC, SELFPAY | END 2023-10-09 15:28 | disposition home or self-care (01) | PROVIDERS: Visit Provider Advanced Practice Midwife | DX: Z34.82 Encounter for supervision of other normal pregnancy, second trimester (principal); Z3A.15 15 weeks gestation of pregnancy | CPT/HCPCS: 80306; 81511 ==

== ENCOUNTER 2023-11-06 12:42 | Outpatient (CLI) | payer BC, SELFPAY ==
--- NOTE | 2023-11-06 13:00 | US_ITS ---
Patient: LUPE QIU Facility:?[facility] Patient ID:?[id number] Site Patient ID:?[id number]. Site :?2001 Study:?US-OB Pelvis OB ANATOMY-11/06/2023 1:50:15 PM Ordering Physician:?ANDRAE FUENTES CNM Final Report: INDICATION: Evaluate anatomy. COMPARISON: 09/11/2023 TECHNIQUE: Real time zarate scale imaging of the fetus was performed as well as color Doppler analysis of the umbilical vessels. FINDINGS: Sonographic imaging demonstrates a single living intrauterine gestation. Fetus demonstrates a regular cardiac rate of 150 beats per minute. Fetus has a variable position. The placenta lies anteriorly without evidence of placenta previa. Placental edge is 3.1 cm from the internal cervical os. Amniotic fluid volume appears normal. Single deepest vertical pocket: 5.1 cm. The cervix is closed and measures 4.7 cm in length. The composite ultrasound gestational age is calculated at 19 weeks 6 days with an estimated sonographic due date of 03/26/2024. The estimated weight is 316 grams which lies at the 45th %. The following biometric measurements were obtained: Biparietal diameter: 4.1 cm/18 weeks 4 days 7th% Head circumference: 16.7 cm/19 weeks 3 days 21st% Abdominal circumference: 13.8 cm/19 weeks 1 day 24th% Femur length: 3.4 cm/20 weeks 6 days 75th% The HC/AC ratio measures: 1.21 range (1.08-1.26) On anatomic survey, there is a normal appearance of the cerebral ventricles, cavum septi pellucidi, cisterna magna and cerebellum. Incomplete visualization of the facial structures. The cervical, thoracic and lumbar spine are well visualized and appear normal. Incomplete visualization of the cardiac structures. The diaphragm and stomach appear normal. The kidneys and bladder also appear normal. There is a normal three-vessel cord and cord insertion site. The four extremities appear normal. IMPRESSION: Concordance of clinical and sonographic dating. Incomplete visualization of the heart and face due to position. Remainder of the anatomic survey is normal. Short-term follow-up recommended. Dictated by Cameron Ramos MD @ 11/08/2023 5:31:55 AM Signed by:?Cameron Ramos MD @11/08/2023 5:31:55 AM (Electronic Signature)
== END 2023-11-06 12:43 | disposition home or self-care (01) ==
LOC: US 12:46
PROVIDERS: Visit Provider Advanced Practice Midwife
DX: Z34.82 Encounter for supervision of other normal pregnancy, second trimester (principal); Z3A.19 19 weeks gestation of pregnancy
CPT/HCPCS: 76805

== ENCOUNTER 2023-11-20 14:34 | Outpatient (CLI) | payer BC, SELFPAY ==
--- NOTE | 2023-11-20 15:00 | US_ITS ---
Patient: LUPE QIU Facility:?[facility] Patient ID:?[id number] Site Patient ID:?[id number]. Site :?2001 Study:?US-OB Pelvis OB F/U-11/20/2023 3:37:09 PM Ordering Physician:Todd Mccormick Final Report: OB ULTRASOUND FOLLOWUP 11/20/2023 CLINICAL HISTORY: Incomplete anatomy scan, heart and facial views are needed. ZOIE by LMP: 03/26/2024. GA: 21 weeks 6 days. Single. COMPARISON: 11/06/2023. FINDINGS: CERVIX: Visualized. POSITIONING: Vertex. AMNIOTIC FLUID: 4.6 cm. PLACENTA: Technique: Transabdominal. PLACENTA POSITION: Anterior. DOPPLERS: Heart Rate: 145 bpm. IMPRESSION: 1. Four chamber heart and outflow tracts are seen and appear normal. 2. Facial profile, nose and lips were seen and appear normal. Kyle Elder M.D. Body/Diagnostic Radiologist [email or web address] ALEX/terence D& Transcribed: 9:56 am DW/Dictated by: Kyle Elder MD @ 11/21/2023 9:15:00 AM Signed by:?Kyle Elder MD @11/21/2023 10:06:19 AM (Electronic Signature)
== END 2023-11-20 14:35 | disposition home or self-care (01) ==
LOC: US 14:34
PROVIDERS: Visit Provider Advanced Practice Midwife
DX: Z34.92 Encounter for supervision of normal pregnancy, unspecified, second trimester (principal); Z3A.21 21 weeks gestation of pregnancy
CPT/HCPCS: 76816

== ENCOUNTER 2024-01-03 10:07 | Outpatient (CLI) | payer BC, SELFPAY | END 2024-01-03 10:08 | disposition home or self-care (01) | PROVIDERS: Visit Provider Obstetrics & Gynecology | DX: O26.893 Other specified pregnancy related conditions, third trimester (principal); Z67.91 Unspecified blood type, Rh negative; Z3A.28 28 weeks gestation of pregnancy | CPT/HCPCS: 86592; 86850; J2791 ==

== ENCOUNTER 2024-01-17 13:45 | Outpatient (CLI) | payer BC, SELFPAY | END 2024-01-17 13:46 | disposition home or self-care (01) | PROVIDERS: Visit Provider Obstetrics & Gynecology | DX: Z34.93 Encounter for supervision of normal pregnancy, unspecified, third trimester (principal); Z3A.30 30 weeks gestation of pregnancy | CPT/HCPCS: 76816; 80306; 87086 ==

== ENCOUNTER 2024-02-15 13:07 | Outpatient (CLI) | payer MEDICAID, SELFPAY ==
--- NOTE | 2024-02-15 13:00 | CRLHL7_ITS ---
For Patients: As a result of the Century Cures Act, medical imaging exams and procedure reports are released immediately into your electronic medical record. You may view this report before your referring provider. If you have questions, please contact your health care provider. INDICATION: obesity TECHNIQUE: Real time zarate scale imaging of the fetus was performed. COMPARISON: 01/17/2024 FINDINGS: Sonographic imaging demonstrates a single living intrauterine gestation. Fetus demonstrates a regular cardiac rate of 140 beats per minute. Fetus has a vertex position. The placenta lies anteriorly. Amniotic fluid volume appears normal and there is a single deepest pocket of 6.8 cm. The estimated weight is 2855gm which lies at the 91st %. On the prior OB ultrasound dated 01/17/2024 the estimated weight was at the 76th percentile. BPD 29th percentile. HC is 74th percentile. AC greater than 97th percentile. FL is 63rd percentile. The fetus was active and demonstrated normal breathing movements. There was normal flexion and extension of the trunk and extremities. IMPRESSION: Normal biophysical profile score 8/8. Sonographic gestational age 35 weeks 4 days and sonographic due date 03/17/2024. Sonographic age is 9 days ahead of the clinical age. Estimated weight 91st percentile. Abdominal circumference greater than 97th percentile. Dictated by Cameron Ramos MD @ 02/17/2024 7:24:52 PM (Electronically Signed)
== END 2024-02-15 13:08 | disposition home or self-care (01) ==
LOC: US 13:07
PROVIDERS: Visit Provider Obstetrics & Gynecology
DX: O99.213 Obesity complicating pregnancy, third trimester (principal); Z3A.35 35 weeks gestation of pregnancy
CPT/HCPCS: 76816; 76819

== ENCOUNTER 2024-02-22 14:00 | Outpatient (CLI) | payer MEDICAID, SELFPAY | END 2024-02-22 14:01 | disposition home or self-care (01) | LOC: NFLDREF 02-26 09:19 | PROVIDERS: Visit Provider Obstetrics & Gynecology | DX: Z34.83 Encounter for supervision of other normal pregnancy, third trimester (principal) | CPT/HCPCS: 87081; 87653 ==

== ENCOUNTER 2024-03-14 13:04 | Outpatient (CLI) | payer MEDICAID, SELFPAY ==
--- NOTE | 2024-03-14 13:00 | CRLHL7_ITS ---
For Patients: As a result of the Century Cures Act, medical imaging exams and procedure reports are released immediately into your electronic medical record. You may view this report before your referring provider. If you have questions, please contact your health care provider. INDICATION: Obesity TECHNIQUE: Real time zarate scale imaging of the fetus was performed. COMPARISON: 02/15/2024 FINDINGS: Sonographic imaging demonstrates a single living intrauterine gestation. Fetus demonstrates a regular cardiac rate of 155 beats per minute. Fetus has a vertex position. The placenta lies anteriorly. Amniotic fluid volume appears normal and there is a single deepest pocket of 4.4 cm. The estimated weight is 3667gm which lies at the 81st %. On the prior OB ultrasound dated 01/17/2024 the estimated weight was at the 76th percentile. BPD 7th percentile. HC 62nd percentile. AC greater than 97th percentile. FL 53rd percentile. The fetus was active and demonstrated normal breathing movements. There was normal flexion and extension of the trunk and extremities. IMPRESSION: Normal biophysical profile score 8/8. Sonographic gestational age 38 weeks 2 days and a sonographic due date 03/26/2024. Good correlation with dates. Normal interval growth. Estimated weight 81st percentile. Abdominal circumference 97th percentile. Dictated by Cameron Ramos MD @ 03/15/2024 5:35:32 AM (Electronically Signed)
== END 2024-03-14 13:05 | disposition home or self-care (01) ==
LOC: US 13:05
PROVIDERS: Visit Provider Obstetrics & Gynecology
DX: O99.213 Obesity complicating pregnancy, third trimester (principal); Z3A.38 38 weeks gestation of pregnancy
CPT/HCPCS: 76816; 76819

== ENCOUNTER 2024-03-19 20:02 | Inpatient (IN) | payer MEDICAID, SELFPAY ==
[2024-03-19 19:16] VITALS: PULSE 90; PULSE 91; TEMP 36.8; O2SAT 94; O2SAT 95
[2024-03-19 19:18] VITALS: BP 101/49; PULSE 117
[2024-03-19 19:55] VITALS: BMI 45.7
--- NOTE | 2024-03-19 20:04 | W.PM.LDBA ---
Subjective History of Present Illness Narrative: Patient is being admitted to Labor and Delivery for elective induction of labor. She is a 24 year old -0-0-2 at 39 weeks, 0 days gestation. Her full history and physical was dictated by Dr. Rodriguez on 02/29/2024. Please see this for details. Specific Issues/Plans [id number] Partner: Ino Espinal Daughters: Joann Sanchez. Baby: Girl! Radha # BMI 42.8 at NOB A1C: 5.1% offer nutrition (declined), anesthesia and OB referrals/consult 20-wk level 2 US- declines Early GDM: 115 Weekly BPP/NST at 34 wks - scheduling form completed 11/05 Growth USN done at 34 weeks. EFW = 91% IOL at 39w0d - 39w6d # Anxiety/depression. Declines therapy and medications at NOB. 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 UDS at 15.6 +THC # Current smoker. Down to 1-5 per day. Taking Vitamin C. # Hx Chlamydia # THC use in using once a day at 15.6 weeks Does not intend to breastfeed. # Suspected Macrosomia 02/15/24 - EFW 91%tile (2855 g), AC >97%tile, SDP 6.8 cm. Consider elective IOL at 39wks Imagin 1/7 weeks = 01/16: Cephalic, anterior placenta, EFW 76%, AC 89%. SDP 5.4 cm 02/15/24 @ 34w2d - EFW 91%tile (2855 g), AC >97%tile, SDP 6.8 cm. 03/14/2024: Vertex, SDP 4.4 cm, BPP 8/, EFW 3667 g, 8 lb 1 oz, 81%. BPD 6.5%, HC 62%, AC> 97%, FL 53% Contraception: partner vasectomy COVID: declined Flu: would like today. Tdap: 01/17/24 GBS 02/22/2024: negative H&P by NDP on 02/29/2024 OB - Problem Based A/P Additional Plan (1) : Status: Acute Plan: Term . Unfavorable cervix. Reassuring status. GBS negative. Plan Using aseptic technique, cook catheter inserted. Intrauterine balloon inflated to 60 mL, and intravaginal to 30 mL. Patient tolerated procedure with some difficulty. Begin low-dose Pitocin for cervical ripening at 12:30 a.m.. Continuous monitoring when Pitocin drip begins. Remove Cook catheter after 12 hours or with rupture of membranes. Delivery/Labor/Induction Plan Induction method: Intracervical balloon catheter OB Exam Physical Exam Vital signs: Temp Pulse BP Pulse Ox 98.3 F 117 H 101/49 L 95 03/19/24 19:16 03/19/24 19:18 03/19/24 19:18 03/19/24 19:16 Narrative: Physical exam: General: No acute distress Psych: Alert and oriented x3, full affect HEENT: Normocephalic, atraumatic Heart: Regular rate and rhythm, no murmur rub or gallop Lungs: Clear to auscultation bilaterally Abdomen: Soft, nontender, gravid Lower extremities: Trace edema, no erythema Pelvic exam: Cervix 2 cm / 40% / -3 / midposition / firm tracing: Baseline 130, accelerations to 160s, no decelerations, moderate variability. Infrequent contractions.
[2024-03-19 20:54] LABS: Basophils Absolute Auto 0.03 K/uL (0.00-0.30); Basophils Percent Auto 0.3 % (0.0-3.0); Hematocrit 36.2 % (33.0-51.0); Hemoglobin* 11.9 gm/dL (12.0-16.0); Immature Granulocytes Abs Auto 0.03 K/uL (0.00-0.30); Immature Granulocytes Pct Auto 0.3 %; Lymphocytes Absolute Auto 2.78 K/uL (0.90-2.90); Lymphocytes Percent Auto 28.8 % (20-44); Mean Corpuscular HGB Conc 33 gm/dL (32-36); Mean Corpuscular Hemoglobin 30 pg (26-34); Mean Corpuscular Volume 92 fL (80-100); Monocytes Percent Auto 5.8 % (0.0-11.0); Neutrophils Absolute Auto 6.15 K/uL (1.7-7.0); Neutrophils Percent Auto 63.8 % (42.0-72.0); Platelet Count* 193 K/uL (140-440); RDW Coefficient of Variation % 14.9 % (11.5-15.5); Red Blood Count 3.94 m/uL (4.00-5.20); White Blood Count* 9.65 K/uL (4.50-11.00)
[2024-03-19 20:55] LABS: Slide Review Reflex No
[2024-03-19 21:39] VITALS: BP 114/68; PULSE 76
[2024-03-19] MEDS: hydrOXYzine pamoate 25 MG CAPSULE 100 MG PO (22:44)
[2024-03-19] MEDS: MORPHINE 10 MG/ML inj IM (22:46)
[2024-03-19 23:37] VITALS: BP 105/55; PULSE 72; PULSE 75; RESP 16; TEMP 36.6; O2SAT 97
[2024-03-20] VITALS (56 sets, daily range): BP systolic 78–137; BP diastolic 39–102; PULSE 67–100; RESP 12–16; TEMP 36.6–36.9; O2SAT 96
[2024-03-20] MEDS: OXYTOCIN 30 unit/500 ML in NS 30 UNIT/500 ML BAG IVPB (00:35)
[2024-03-20] MEDS: LACTATED RINGERS 1000 ML 1,000 ML 125 ML IV ×5 (00:37→13:34)
--- NOTE | 2024-03-20 07:35 | P.OBPN_ITS ---
Subjective Time Seen by Provider: 07:35 Date Seen: 03/20/24 Narrative: Katiuska is a 24yo at 39w1d GA ongoing elective IOL. is complicated by tobacco use disorder, history of substance use disorder, mood disorder, obesity and GERD. IOL course has included cook catheter and pitocin. Cook was expelled around 0500, on 13mu/min of pitocin at present. Patient is feeling entirely comfortable. Notes contractions are not painful. Some bloody show post-cook. No leaking of fluids. Endorses active movement. Objective Exam: VS reviewed and are WNL. General: Alert and oriented, in no acute distress Abdomen: Gravid. EFW 3800g by Steve'jamie. Last US on 8 for growth with EFW of 3667g at 81%ile, AC >97%ile. Cervix: 5/50/-2, head well applied. AROM performed with return of clear to pink fluid. FHR: Category 1. Baseline 120bpm, moderate variability, accels present and decels absent. Constantine: Savanah q3-4m Vital Signs: Last Vital Signs Temp 98.5 F 03/20/24 03:45 Pulse 77 03/20/24 03:45 Resp 12 03/20/24 03:45 BP 93/43 L 03/20/24 03:45 Pulse Ox 96 03/20/24 03:45 Plan Plan: Katiuska is a 24yo ongoing elective IOL. is complicated by tobacco use disorder, history of substance use disorder, mood disorder, obesity and GERD. - IOL course has included cook and pitocin - Now s/p AROM with return of clear to pink fluid, likely bloody show post-cook - Category 1 FHR tracing - Pain control per patient preference, planning epidural - GBS negative - BT O negative, cord blood at delivery - Anticipate next exam in about 4 hours, sooner as clinically indicated.
[2024-03-20] MEDS: ONDANSETRON 2 MG/ML inj 4 MG IV (11:56)
[2024-03-20] MEDS: fentaNYL 100 MCG/2 ML inj 25 MCG INTRATHECA (12:10)
--- NOTE | 2024-03-20 12:16 | P.ANBPRC_ITS ---
[facility] Medical History (Updated 03/19/24 @ 20:19 by Susana Noriega MD) History of drug use ?F19.91 - Other psychoactive substance use, unspecified, in remission (ICD- 10) Stye ?H00.019 - Hordeolum externum unspecified eye, unspecified eyelid (ICD-10) GERD (gastroesophageal reflux disease) ?K21.9 - Gastro-esophageal reflux disease without esophagitis (ICD-10) Migraine with aura ?G43.109 - Migraine with aura, not intractable, without status migrainosus (ICD-10) Illicit drug use ?F19.90 - Other psychoactive substance use, unspecified, uncomplicated (ICD- 10) Dysmenorrhea ?N94.6 - Dysmenorrhea, unspecified (ICD-10) Closed head injury ?S09.90XA - Unspecified injury of head, initial encounter (ICD-10) Surgical History (Updated 09/11/23 @ 15:40 by Hiram Agarwal) [place] teeth extracted ?K08.409 - Partial loss of teeth, unspecified cause, unspecified class (ICD- 10) No pertinent past surgical history ?Z78.9 - Other specified health status (ICD-10) Family History Family/Other Breast cancer Grandfather Diabetes Father Substance abuse Other Heart disease Social History (Updated 09/11/23 @ 17:27 by Radha Vickers CNM) Narrative: SOCIAL Education: High school Work: Stays home with her kids Partner: Kevin Lives with: With 2 children, SHIREEN is not living with her, in good relationship. he is the father of all of her children. Pets: 2 cats, not changing litter Abuse: Denies Special Diet: Denies Ok with a blood transfusion: yes Culture or restorationism beliefs: denies RISK FACTORS Exercise Times/wk: Stay active with kids Depression/Anxiety: Yes SAMANTHA: 5 PHQ 9: 4 . She declines counselling today. Aware to reach out with worsening symptoms Seat Belt Use: Routinely Smoking: present 1-5 sticks a days Alcohol/day: Used beginning of Caffeine: Denies Drug Use: Past cocaine and meth use 5-6 yrs ago/ Denies present usage Chicken Pox: Denies MRSA: Denies What is your current living situation?: I presently have a place to live Problems where you live: declined to answer In the past 12 months, utilities in danger of being shut off: no In past 12 months, lack of transportation kept you from medical appts, meetings, work, or getting things needed for daily living: no In the past 12 mos, have been you worried that your food would run out before you had money to buy more?: never true In the past 12 mos, the food you bought just didn't last and you didn't have money to buy more?: never true Smoking Status: Current every day smoker What tobacco products do you use: ciga rettes How often do you have a drink containing alcohol: 2-4 times a month How many standard drinks containing alcohol do you have on a typical day: 3 or 4 How often do you have six or more drinks on one occasion: Never AUDIT-C Alcohol total score: 3 Non-prescribed substance use: marijuana (any form) How often does anyone, including family, friends and others, physically hurt you : never How often does anyone, including family, friends and others, insult or talk down to you: never How often does anyone, including family, friends and others, threaten you with harm: never How often does anyone, including family, friends and others, scream or curse at you: never Little interest or pleasure in doing things: not at all Feeling down, depressed, or hopeless: not at all Meds Home Medications and Allergies Home Medications ?Medication ?Instructions ?Recorded ?Confirmed ?Type vits no.126-ferrous fum 1 tab PO DAILY 09/11/23 03/19/24 History 28 mg iron-folic acid 800 mcg tablet (Classic ) acetaminophen 325 mg tablet 650 mg PO Q4H PRN 01/17/24 03/19/24 History (Tylenol) calcium carbonate (Tums) 200 mg PO QID 01/17/24 03/19/24 History Allergies Allergy/AdvReac Type Severity Reaction Status Date / Time ibuprofen Allergy Mild Unsure Verified 03/19/24 20:01 Results Labs Labs: Laboratory Results - last 24 hr 03/19/24 20:44 WBC 9.65 RBC 3.94 L Hgb 11.9 L Hct 36.2 MCV 92 MCH 30 MCHC 33 RDW Coeff of Cynthia 14.9 Plt Count 193 Neut % (Auto) 63.8 Lymph % (Auto) 28.8 [place] % (Auto) 5.8 Eos % (Auto) 1.0 Baso % (Auto) 0.3 Neut # (Auto) 6.15 Lymph # (Auto) 2.78 [place] # (Auto) 0.60 Eos # (Auto) 0.10 Baso # (Auto) 0.03 Abs Immat Gran (auto) 0.03 Imm/Tot Granulo (auto) 0.3 Blood Type O Negative Antibody Screen NEGATIVE Vital Signs Vital Signs: Last Vital Signs Temp 98 F 03/20/24 10:16 Pulse 86 03/20/24 12:15 Resp 16 03/20/24 10:16 BP 87/42 L 03/20/24 12:15 Pulse Ox 96 03/20/24 03:45 Weight: 113.398 kg Height: 157.48 cm Anesthesia Procedures Intrathecal Patient Location: OB Start Time: 11:58 Stop Time: 12:17 Start Date: 03/20/24 Stop Date: 03/20/24 Reason for Block: procedure for pain Patient Position: sitting Performed By: Eusebio Kapadia Preanesthetic Checklist: IV checked, site marked, risks and benefits discussed, monitors and equipment checked, pre-op evaluation, timeout performed and anesthesia consent Prep: chlorhexidine gluconate Monitoring: blood pressure monitoring, continuous pulse oximetry and heart rate Approach: midline Vertebral Space: lumbar (1-5) Needle Type: Sprotte Injection Technique: single-shot Needle gauge: 25
[2024-03-20] MEDS: ePHEDrine sulfate 5 MG/ML inj 10 MG IVP (12:28)
[2024-03-20] MEDS: PHENYLEPHRINE 100 MCG/ML SYRINGE IVP (12:34)
--- NOTE | 2024-03-20 15:38 | W.PM.VAGDEL1 ---
Procedure Delivery date: 03/20/24 Procedure Done: Global Procedure Details: Normal spontaneous vaginal delivery Events: Other (Tobacco use disorder, history of substance use disorder, mood disorder, obesity) Intrapartal Events: Labor Induction Delivery augmentation: rupture of membranes Delivery monitor: external FHT Route of delivery: Laceration description: None Estimated blood loss (mL): 100 Anesthesia type: Spinal Disposition: floor Complications: None Narrative: Katiuska Cormier is a 24yo at 39w1d GA admitted for elective IOL. is complicated by tobacco use disorder, history of substance use disorder, mood disorder, obesity and GERD. heart tones on admission were category 1. Her labor was induced with Cook catheter and Pitocin and ITN was utilized for pain management. Status of bag of kolb: AROM performed during labor for return of clear fluid. heart tones during active labor were category 1 and 2. She had a cervical check Patient was noted to be complete and involuntarily pushing at 1459. I urgently presented to the bedside. FHR was 120bpm with brief variable decelerations during involuntary pushing events. She was noting to be making rapid descent to parting labia shortly after arrival to room. She had a normal spontaneously vaginal at 1504. heart tones during the second stage of labor were category 1 and 2. Baby delivered OA, restituted ROMEO and the anterior and posterior shoulders delivered without difficulty. Nuchal cord: absent. The cord was clamped and cut after delayed cord clamping. Active management of the third stage was initiated with IV pitocin, gentle cord traction. The placenta delivered spontaneous and intact at 1519. Cord gases sent: No Cord blood sent for ABO: Yes Perineum and vagina were inspected, and the following lacerations were noted: none, intact. Tiny periurethral abrasion noted, hemostatic with gentle pressure. No repair was required. Excellent uterine tone was noted on fundal massage. Excellent hemostasis was noted. The following counts were correct: sponges, needles, instruments. Mother and infant in stable condition following the . details: - Liveborn female at 1504 - APGARs were 8 and 9 at 1 and 5 minutes respectively - weight: 3840g [place] Infant Infant Gender: Female presentation: vertex Placental Delivery Description: Spontaneous Cord Description: 3 Vessels
[2024-03-20] MEDS: ACETAMINOPHEN 500 MG TABLET 1000 MG PO (16:01)
[2024-03-21] MEDS: ACETAMINOPHEN 500 MG TABLET 1000 MG PO ×2 (00:24→08:48)
[2024-03-21 00:33] VITALS: BP 104/70; PULSE 101; RESP 12; TEMP 36.8
[2024-03-21 04:34] VITALS: BP 112/75; PULSE 76; RESP 12; TEMP 36.8; O2SAT 96
[2024-03-21] MEDS: ENOXAPARIN 40 MG/0.4 ML INJ SUBCUT (04:40)
--- NOTE | 2024-03-21 07:32 | PM.ANPOST ---
Post Anesthesia Note Post Anesthesia Note Patient seen: Inpatient Respiratory Status: adequate Cardiovascular Status: adequate Mental Status: baseline Pain: adequate Temp: baseline Anesthetic awareness: N/A Complications: none Follow care: none
[2024-03-21 08:41] VITALS: BP 123/82; PULSE 73; RESP 14; TEMP 36.8
[2024-03-21] MEDS: DOCUSATE SODIUM 100 MG CAPSULE PO (08:48)
--- NOTE | 2024-03-21 10:42 | PM.OBDSVD1 ---
DS: Providers Provider Date Seen: 03/21/24 Date of admission: 03/19/24 20:02 Primary care physician: Not a Local Provider Admitting Clinician: Susana Noriega MD Attending Physician on discharge: Franchesca Richter CNM, APRN DS: Diagnosis Discharge Diagnosis (1) (normal spontaneous vaginal delivery): Status: Acute (2) care and examination: Status: Acute (3) Anxiety and depression: Status: Acute (4) Tobacco use: Status: Acute (5) BMI 40.0-44.9, adult: Status: Acute Exam Narrative: Exam Narrative: GENERAL APPEARANCE:? normal affect, alert, no distress MOOD:? appropriate CHEST:? clear to auscultation HEART:? regular rate and rhythm ABDOMEN:? soft, non-tender the uterine fundus is 2 cm Above Umbilicus, Midline and is appropriate for the stage of recovery. EXTREMITIES:? normal and minimal edema Const: Vital Signs, click to edit/add: Vital Signs - 24 hr 03/20/24 12:00 03/20/24 12:12 03/20/24 12:15 Temperature Pulse Rate 78 83 86 Pulse Rate [Pulse Oximeter] Respiratory Rate Blood Pressure 133/75 112/58 L 87/42 L Blood Pressure [Le ft Arm] Pulse Oximetry Oxygen Delivery [facility] 03/20/24 12:16 03/20/24 12:19 03/20/24 12:20 Temperature Pulse Rate 73 71 71 Pulse Rate [Pulse Oximeter] Respiratory Rate Blood Pressure 78/39 L 93/53 L 97/53 L Blood Pressure [Le ft Arm] Pulse Oximetry Oxygen Delivery [facility] 03/20/24 12:22 03/20/24 12:27 03/20/24 12:29 Temperature Pulse Rate 67 77 75 Pulse Rate [Pulse Oximeter] Respiratory Rate Blood Pressure 87/45 L 95/51 L 93/49 L Blood Pressure [Le ft Arm] Pulse Oximetry Oxygen Delivery [facility] 03/20/24 12:30 03/20/24 12:32 03/20/24 12:34 Temperature Pulse Rate 78 75 78 Pulse Rate [Pulse Oximeter] Respiratory Rate Blood Pressure 96/53 L 95/51 L 94/52 L Blood Pressure [Le ft Arm] Pulse Oximetry Oxygen Delivery [facility] 03/20/24 12:36 03/20/24 12:39 03/20/24 12:41 Temperature Pulse Rate 75 85 75 Pulse Rate [Pulse Oximeter] Respiratory Rate Blood Pressure 98/57 L 93/51 L 98/48 L Blood Pressure [Le ft Arm] P[facility] Oxim[facility] 03/20/24 12:46 03/20/24 12:51 03/20/24 13:01 Temperature Pulse Rate 76 96 81 Pulse Rate [Pulse Oximeter] Respiratory Rate Blood Pressure 98/48 L 111/53 L 102/50 L Blood Pressure [Le ft Arm] Pulse Oximetry [facility] 03/20/24 13:07 03/20/24 13:11 03/20/24 13:16 Temperature Pulse Rate 78 90 79 Pulse Rate [Pulse Oximeter] Respiratory Rate Blood Pressure 98/48 L 97/53 L 93/50 L Blood Pressure [Le ft Arm] Pulse Oximetry [facility] 03/20/24 13:21 03/20/24 13:26 03/20/24 13:32 Temperature Pulse Rate 78 76 86 Pulse Rate [Pulse Oximeter] Respiratory Rate Blood Pressure 101/55 L 102/52 L 113/50 L Blood Pressure [Le ft Arm] Pulse Oximetry [facility] 03/20/24 13:32 03/20/24 13:36 03/20/24 13:41 Temperature 98.5 F Pulse Rate 79 74 Pulse Rate [Pulse Oximeter] Respiratory Rate 16 Blood Pressure 102/50 L 100/55 L Blood Pressure [Le ft Arm] Pulse Oximetry Oxygen Delivery [facility] 03/20/24 13:47 03/20/24 13:51 03/20/24 13:57 Temperature Pulse Rate 70 76 75 Pulse Rate [Pulse Oximeter] Respiratory Rate Blood Pressure 110/53 L 110/53 L 106/55 L Blood Pressure [Le ft Arm] Pulse Oximetry [facility] 03/20/24 14:02 03/20/24 14:07 03/20/24 14:11 Temperature Pulse Rate 75 74 80 Pulse Rate [Pulse Oximeter] Respiratory Rate Blood Pressure 94/51 L 109/53 L 105/54 L Blood Pressure [Le ft Arm] Pulse Oximetry [facility] 03/20/24 14:16 03/20/24 14:21 03/20/24 14:32 Temperature Pulse Rate 84 92 92 Pulse Rate [Pulse Oximeter] Respiratory Rate Blood Pressure 115/56 L 136/69 123/57 L Blood Pressure [Le ft Arm] Pulse Oximetry [facility] 03/20/24 14:37 03/20/24 15:23 03/20/24 15:37 Temperature 98.0 F Pulse Rate 100 85 Pulse Rate [Pulse Oximeter] Respiratory Rate 16 Blood Pressure 131/78 137/102 H Blood Pressure [Le ft Arm] Pulse Oximetry [facility] 03/20/24 15:38 03/20/24 15:52 03/20/24 15:53 Temperature Pulse Rate 81 80 Pulse Rate [Pulse Oximeter] Respiratory Rate 16 Blood Pressure 122/54 L 135/60 Blood Pressure [Le ft Arm] Pulse Oximetry [facility] 03/20/24 16:07 03/20/24 16:08 03/20/24 16:22 Temperature 97.9 F Pulse Rate 86 Pulse Rate [Pulse Oximeter] Respiratory Rate 16 16 Blood Pressure 122/59 L Blood Pressure [Le ft Arm] Pulse Oximetry [facility] 03/20/24 16:23 03/20/24 16:38 03/20/24 17:12 Temperature Pulse Rate 77 74 Pulse Rate [Pulse Oximeter] Respiratory Rate 16 Blood Pressure 132/59 L 122/70 Blood Pressure [Le ft Arm] Pulse Oximetry [facility] 03/20/24 17:13 03/20/24 17:22 03/20/24 17:23 Temperature Pulse Rate 81 88 Pulse Rate [Pulse Oximeter] Respiratory Rate 16 Blood Pressure 128/64 137/61 Blood Pressure [Le ft Arm] Pulse Oximetry [facility] 03/20/24 17:37 03/20/24 17:38 03/20/24 19:48 Temperature 98.2 F 98.0 F Pulse Rate 86 Pulse Rate [Pulse Oximeter] 92 Respiratory Rate 16 12 Blood Pressure 127/58 L Blood Pressure [Le ft Arm] 99/64 Pulse Oximetry 96 [facility] 03/21/24 00:33 03/21/24 04:34 03/21/24 08:41 Temperature 98.3 F 98.2 F 98.2 F Pulse Rate Pulse Rate [Pulse Oximeter] 101 H 76 73 Respiratory Rate 12 12 14 Blood Pressure Blood Pressure [Le ft Arm] 104/70 112/75 123/82 Pulse Oximetry 96 [facility] OB - DS: Summary Hospital Course Hospital Course: Katiuska is a 24 y.o. who was admitted to [facility] for elective IOL. ?She had an uncomplicated NVD.?The patient feels well. ?The pain is well controlled with current medications. ?She has no new complaints. ?She is bottlefeeding and reports things are going well.? the patient has done well.? Vitals have been stable.? She has remained afebrile.? Has a good appetite, is tolerating a general diet. ?She is voiding without difficulty.? She is passing gas and has not had a bowel movement.? She is ambulating and denies any dizziness.? Has Small amount of rubra lochia. ?She is planning vasectomy for prevention. Plan: Discharge to home. Peripartum Data Infant delivery method: Vaginal Laceration description: None Episiotomy description: None complications: none Gender: Female Discharge Plan: Home Status at Discharge Overall status at discharge: patient is progressing back to baseline Time Spent with Patient Time attestation: Total time spent providing and/or coordinating discharge services: Time spent: Less than 30 minutes Discharge Plan Discharge Disposition: Home, Self-Care Date of Admission: 03/19/24 20:02 Primary Care Provider: Provider,Not a Local Condition: Stable Anticipated Discharge Date/Time: 03/21/24 19:00 Discharge Medications: New acetaminophen 500 mg Tablet 1,000 mg PO Q6H PRNQty: 60 0RF docusate sodium 100 mg Capsule 100 mg PO DAILY Qty: 60 0RF Continued Classic 28 mg iron- 800 mcg tablet 1 tab PO DAILY Discontinued acetaminophen [Tylenol] 325 mg tablet 650 mg PO Q4H PRN calcium carbonate [Tums] 200 mg calcium (500 mg) tablet,chewable 200 mg PO QID Discharge Orders: Discharge Order (Routine); Ordered 03/21/24 Ordered By: Franchesca Richter Patient Education: OB Care, OB Vaginal/Bottle Feeding Additional Instructions: Discharge instructions were reviewed with the patient including signs and symptoms of infection and home going medications Nothing vaginally for 6 weeks: no tampons or intercourse Do not drive while taking narcotic pain medication(s) Off Work or School for 6 weeks Symptoms to report to doctor: Bleeding that saturates more than one pad per hour Passing clots larger than the size of a golf ball Pain not relieved by prescribed medication Fever above 100.4 degrees Fahrenheit A foul vaginal odor Difficulty in emotions, mood, and functions Thoughts of hurting yourself and/or Painful, reddened area in your breast Any drainage, redness, or tenderness in your IV/epidural site Severe headache that doesn't improve after taking medications Changes in vision, including temporary loss of vision, blurred vision, and/or light sensitivity Upper abdominal pain (usually under ribs on the right side) Decrease in urination or painful, frequent urinating Chest pain Shortness of breath Tenderness or pain with redness and/swelling in the calf(s) of your leg 2-week visit: discuss infant feeding concerns, review control options and screen for anxiety/depression. 6-week visit for an annual exam. Continue docusate sodium (Colace) up to twice daily until stools are soft and regular. Tylenol 1000 mg by mouth as needed for pain every 6 hours. consultation services are available to all mothers and babies for the first year after delivery.? To make an appointment, please call [phone]. Activity Level: Activity as Tolerated Discharge Diet: Regular Follow Up Appointments: Provider,Not a Local [Primary Care Provider] - Forms: [place] Info Instructions
[2024-03-21 14:45] VITALS: BP 126/82; PULSE 70; RESP 14; TEMP 36.7
[2024-03-22 01:25] LABS: Rapid Plasma Reagin (RPR) Non Reactive (Non Reactive)
== END 2024-03-21 16:51 | disposition home or self-care (01) | DRG 560 ==
LOC: OB OUT 20:03 → OB 03-20 08:40
PROVIDERS: Obstetrics & Gynecology; Admitting Provider Obstetrics & Gynecology; Visit Provider Obstetrics & Gynecology
DX: O99.344 Other mental disorders complicating childbirth (principal); F41.9 Anxiety disorder, unspecified; F32.A Depression, unspecified; F12.90 Cannabis use, unspecified, uncomplicated; O99.334 Smoking (tobacco) complicating childbirth; F17.210 Nicotine dependence, cigarettes, uncomplicated; O99.214 Obesity complicating childbirth; E66.9 Obesity, unspecified; K21.9 Gastro-esophageal reflux disease without esophagitis; F15.11 Other stimulant abuse, in remission; F14.91 Cocaine use, unspecified, in remission; Z3A.39 39 weeks gestation of pregnancy; Z37.0 Single live birth
CPT/HCPCS: 01967; 36415; 59200; 85018; 85025; 86592; 86850; 86900; 86901; G0463; A9270; C1726; J1650; J2270; J2371; J2405; J3010; J7120

== ENCOUNTER 2024-10-24 14:01 | Outpatient (CLI) | payer BC, SELFPAY | END 2024-10-24 14:02 | disposition home or self-care (01) | LOC: NFLDREF 10-26 22:11 | PROVIDERS: PCP Registered Nurse; Referring Provider Registered Nurse; Visit Provider Obstetrics & Gynecology | DX: N39.0 Urinary tract infection, site not specified (principal) | CPT/HCPCS: 87086 ==